=== PATIENT | male | born 1980 | race Hispanic/Latino ===

== ENCOUNTER 2016-10-18 03:45 | Inpatient (IN) | payer OTHER, MEDICAID ==
--- NOTE | 2016-10-18 03:58 | C.PDOC ---
History Of Present Illness The patient presents to the ED for psychiatric evaluation. Patient states he is depressed. Patient states he wants to jump in front of a car and also states he wants to return to [facility]. He denies homicidal ideation. Time Seen by Provider: 10/18/16 03:58 Chief Complaint (Nursing): Psychiatric Evaluation History Per: Patient History/Exam Limitations: no limitations Onset/Duration Of Symptoms: Hrs Current Symptoms Are (Timing): Still Present Suicide/Self Injury Attempted (Context): None Modifying Factor(s): None Severity: Mild Pain Scale Rating Of: 3 Associated Symptoms: Depression, Suicidal Thoughts, Suicidal Plan Involuntary Hold By: None Recent travel outside of the [place]: No Additional History Per: Patient Past Medical History Reviewed: Historical Data, Nursing Documentation, Vital Signs Vital Signs: Last Vital Signs Temp 97.4 F L 10/18/16 06:54 Pulse 91 H 10/18/16 06:54 Resp 16 10/18/16 06:54 BP 112/66 10/18/16 06:54 Pulse Ox 96 10/18/16 06:54 - Medical History PMH: Anxiety, Bipolar Disorder, Bronchitis, Depression, Schizophrenia Surgical History: Appendectomy - [facility] Procedures ALCOHOL DETOXIFICATION (11/11/14) COMBINED ALCOHOL AND DRUG DETOXIFICATION (08/18/14) DETOXIFICATION SERVICES FOR SUBSTANCE ABUSE TREATMENT (12/31/14) DRUG DETOXIFICATION (09/29/14) INDIVID PSYCHOTHERAP NEC (10/21/14) NEBULIZER THERAPY (06/23/02) OTHER GROUP THERAPY (10/21/14) Family History: States: Unknown Family Hx - Social History Hx Tobacco Use: No Hx Alcohol Use: Yes ("WHATEVER AND WHENEVER I CAN GET") Hx Substance Use: Yes ("WHATEVER AND WHENEVER I CAN GET") - Immunization History Hx Tetanus Toxoid Vaccination: No Hx Influenza Vaccination: No Hx Pneumococcal Vaccination: No Review Of Systems Constitutional: Negative for: Fever, Chills Cardiovascular: Negative for: Chest Pain, Palpitations Respiratory: Negative for: Cough, Shortness of Breath Gastrointestinal: Negative for: Nausea, Vomiting, Abdominal Pain Skin: Negative for: Rash, Lesions, Jaundice, Bruising Neurological: Negative for: Weakness, Numbness Psych: Positive for: Depression, Suicidal ideation Physical Exam - Physical Exam Appears: Non-toxic, No Acute Distress Skin: Warm, Dry Head: Normacephalic Eye(s): bilateral: Normal Inspection Oral Mucosa: Moist Neck: Supple Chest: Symmetrical, No Deformity Cardiovascular: Rhythm Regular, No Murmur Respiratory: No Rales, No Rhonchi, No Wheezing Extremity: Normal ROM, Capillary Refill (less than 2 seconds ) Neurological/Psych: Oriented x3 Gait: Steady ED Course And Treatment - Laboratory Results Result Diagrams: 10/18/16 04:16 10/18/16 04:16 O2 Sat by Pulse Oximetry: 97 (on RA) Pulse Ox Interpretation: Normal Progress Note: labs ordered and reviewed. ED OBSERVATION Date of observation admission: 10/18/16 Time of observation admission: 05:20 - Observation admission statement Patient is being placed in observation because:: depression, suicidal ideation - Goals of Observation Goals of observation are:: crisis evaluation - Progress Note Progress Note: 10/18/16 05:22 patient is resting comfortably, vitals remain stable Disposition Counseled Patient/Family Regarding: Studies Performed, Diagnosis - Disposition Disposition Time: 03:58 Condition: FAIR - Clinical Impression Clinical Impression: Major depressive disorder, Alcohol use disorder - Scribe Statement The provider has reviewed the documentation as recorded by the Scribe (Sri Bates) All medical record entries made by the Scribe were at my direction and personally dictated by me. I have reviewed the chart and agree that the record accurately reflects my personal performance of the history, physical exam, medical decision making, and the department course for this patient. I have also personally directed, reviewed, and agree with the discharge instructions and disposition. Physician Patient Turnover Patient Signed Over To: Krysta Alvarez Handoff Comments: Pending bed availability for admission
[2016-10-18 04:32] LABS: CHLORIDE 100 mmol/L (98-107)
[2016-10-18 04:33] LABS: POTASSIUM 3.6 mmol/L (3.6-5.2); SODIUM 144 mmol/L (132-148)
[2016-10-18 04:35] LABS: ALB/GLOB RATIO 1.4 (1.0-2.1); ALKALINE PHOSPHATASE 85 U/L (38-126); ALT/SGPT 92 U/L (21-72); AST/SGOT 86 U/L (17-59); BILIRUBIN,TOTAL 0.6 mg/dL (0.2-1.3); BLOOD UREA NITROGEN 14 mg/dL (9-20); CARBON DIOXIDE 26 mmol/L (22-30); GFR AFRICAN-AMERICAN > 60; TOTAL PROTEIN 7.6 g/dL (6.3-8.3)
[2016-10-18 04:36] LABS: ALCOHOL SERUM 227 mg/dl (0-10); CALCIUM 9.1 mg/dl (8.6-10.4); GLUCOSE,RANDOM 115 mg/dL (75-110)
[2016-10-18 04:38] LABS: BASO % 0.4 % (0.0-2.0); EOS # 0.6 K/uL (0.0-0.7); EOS % 5.7 % (0.0-4.0); HEMATOCRIT 31.5 % (35.0-51.0); LYMPH # 4.6 K/uL (1.0-4.3); LYMPH % 43.6 % (20.0-40.0); MEAN CELL VOLUME 82.4 fL (80.0-94.0); MEAN CORPUSCULAR HEMOGLOBIN 28.2 pg (27.0-31.0); MEAN CORPUSCULAR HGB CONC 34.3 g/dL (33.0-37.0); MEAN PLATELET VOLUME 6.3 fL (7.2-11.7); MONO # 0.6 K/uL (0.0-0.8); MONO % 6.1 % (0.0-10.0); NRBC % 0.1 % (0.0-2.0); RED CELL DISTRIBUTION WIDTH 13.4 % (11.5-14.5); WHITE BLOOD COUNT 10.5 K/uL (4.8-10.8)
[2016-10-18 05:49] LABS: URINE BILIRUBIN NEGATIVE (NEGATIVE); URINE BLOOD NEGATIVE (NEGATIVE); URINE COLOR Yellow (YELLOW); URINE GLUCOSE (UA) NORMAL (Normal); URINE KETONE NEGATIVE (NEGATIVE); URINE LEUKOCYTE ESTERASE NEG Leu/uL (Negative); URINE PROTEIN 1+ mg/dL (NEGATIVE); URINE UROBILINOGEN NORMAL mg/dL (0.2-1.0); WBC URINE 1 /hpf (0-5)
[2016-10-18] MEDS: Divalproex 500 mg DR Tab PO SCH ×2 (12:09→17:12)
--- NOTE | 2016-10-18 14:02 | PCM.BM ---
<Madalyn Peres - Last Filed: 10/18/16 13:57> Treatment Plan Problems - Problems identified on initial assessmt Depression Date Initiated: 10/18/16 Time Initiated: 13:57 Assessment reference: PE, NA Status: Active Substance Abuse Date Initiated: 10/18/16 Time Initiated: 13:59 Assessment reference: NA Status: Active Treatment assets and liabiliti Patient Assests: cooperative, ADL independent, physically healthy, cognitively intact Patient Liabilities: live alone (Homeless), poor support system, substance abuse (PCP, ETOH, Cocaine, THC) - Milieu Protocol Maintain good personal hygiene: daily Encourage regular showers, daily Remind patient to perform daily oral care, other Assist patient to perform ADL's (Self) Conduct patient checks and document Observation sheet: Q15 minutes (Observation) Maintain personal safety: every shift Educate patient to report safety concerns to staff, every shift Monitor environment for contraband/sharps Medication safety: Monitor for expected outcome, potential side effects: every shift, Assess barriers to learning: every shift, Assess readiness for medication education: every shift <Angela Huitron - Last Filed: 10/20/16 11:53> Family Contact - Goals for Treatment Patient goals for treatment: "I want to go to rehab at [facility]." Discharge/Continuing Care - Education Needs Education Needs: Patient Medication, Patient Coping Skills, Patient Placement options, Patient Community resources - Discharge Discharge Criteria: Tolerates medication w/o severe side effects, No longer exhibiting s/s of withdrawal, Reduction of target symptoms Discharge to:: Substance Abuse Rehab - Treatment Team Participation Patient/Family/SO Statement: 10/20/16 11:49 "I want to go to [facility]." Discussed with Family/SO: No Was Patient/Family/SO present at Treatment Team Meeting: Yes <Nain Guadalupe - Last Filed: 10/21/16 13:53> - Diagnosis (1) Schizoaffective disorder, bipolar type Status: Acute Interventions: 10/21/16 13:50 * Assess 7x/week regarding severity of withdrawal * Educate regarding risks, benefits, side effects and alternatives of medications * Use Motivational Interviewing for abstinence * Use CBT for relapse prevention * Medication management for withdrawal symptoms * Encourage medication assisted treatment (2) Alcohol use disorder Status: Acute Interventions: 10/21/16 13:53 * Assess 7x/week regarding severity of withdrawal * Educate regarding risks, benefits, side effects and alternatives of medications * Use Motivational Interviewing for abstinence * Use CBT for relapse prevention * Medication management for withdrawal symptoms * Encourage medication assisted treatment (3) Opioid use disorder, severe, in controlled environment, dependence Status: Acute Interventions: 10/21/16 13:53 * Assess 7x/week regarding severity of withdrawal * Educate regarding risks, benefits, side effects and alternatives of medications * Use Motivational Interviewing for abstinence * Use CBT for relapse prevention * Medication management for withdrawal symptoms * Encourage medication assisted treatment
--- NOTE | 2016-10-18 14:13 | PCM.PSYCH ---
Initial Psychiatric Evaluation - Initial Psychiatric Evaluation Type of Admission: Voluntary Legal Status: Capacity Chief Complaint (in patient's own words): I'm feeling suicidal." History of Present Illness and Precipitating Events: The pt is seen, chart reviewed, case discussed with staff. A 35 yo male presented to the ED yesterday night with suicidal ideation's and depression. He is currently severely depressed and exhibiting psychosis with suicidal ideation's. He states that his mind is constantly racing and that he hears voices, sometimes telling him to commit suicide. Patient remained depressed and appeared to be withdrawal symptoms from drinking. He reports of having shakes, sweating, chills, and exhibits tremors on examination. Tardive dyskinesia is also appreciated on examination. Patient states that he planned this suicide attempt by jumping in front of a car but was unable to carry out the plan. The patient states that he was intoxicated with various drugs when he planned this attempt. He admits to doing 5 bags/day of heroin, 1 g/day of cocaine, 1 nickel bag (5.6 g)/day of marijuana , and drinking 1/2 gallon of vodka/day. The patient states that he is currently receiving suboxone 2 times a day at 8 mg. The patient states that he's had 6-7 previous suicide attempts, with the latest attempt being 2 months ago. He admits to using drugs since 14 years old to self medicate his depression and suicidal ideation's. The patient states that he's felt hopeless, worthless, and suicidal since 8 years old. The patient states that he's seen a psychiatrist, on and off, since childhood and has received both behavioral therapy and medications for his conditions, but that none were successful. The patient states being first diagnosed with Schizoaffective disorder at 15 years old, with the most recent diagnosis on October 08, 2016. The patient states that he' s never been to inpatient detox, but that he has been to rehab at [facility] in 2006. He states that he discharged himself because he didn't believe the program was working for him. The patient denies seizures. 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; homeless; smokes 1 pack/day of tabacco Psychiatric Hx: ADHD (diagnosed in childhood); Conduct disorder as a child/ adolescent; Bipolar Disorder; Depression; Schizoaffective Family Hx: none Past Medical Hx: Bronchitis Family Psychiatric Hx: none Current Medications: Active Medications Generic Name Dose Route Start Last Admin Trade Name Freq PRN Reason Stop Dose Admin Divalproex Sodium 500 mg 10/18/16 11:30 10/18/16 12:[address] PO 500 mg BID MYNOR Administration Haloperidol 5 mg 10/18/16 11:18 Haldol PO Q1H PRN agitation, max 4x/24h Hydroxyzine HCl 50 mg 10/18/16 11:18 10/18/16 12:09 Atarax PO 50 mg Q6H PRN Administration Anxiety Trazodone HCl 100 mg 10/18/16 11:18 Desyrel PO HS PRN Insomnia Past Psychiatric History - Past Psychiatric History Previous Treatment History: Inpatient Pertinent Medical Hx (Current Medical&Sleep Prob, Allergies): Allergies Allergy/AdvReac Type Severity Reaction Status Date / Time No Known Allergies Allergy Verified 05/12/16 11:11 SEROquel 10/18/16 Suboxone 12 mg-3 mg Sl Film 10/18/16 Thorazine 10/18/16 traZODone 10/18/16 Review of Systems - Review of Systems All systems: reviewed and no additional remarkable complaints except - Psychiatric Psychiatric: Anxiety, Auditory Hallucinations, Irritability, Paranoia, Suicidal Ideation, Visual Hallucinations Mental Status Examination - Personal Presentation Personal Presentation: Looks stated age - Affect Affect: Constricted, Depressed - Motor Activity Motor Activity: Psychomotor Agitation - Reliability in Providing Information Reliability in Providing Information: Poor, due to alteration in thoughts, Poor , due to altered mood - Speech Speech: Disorganized - Mood Mood: Depressed, Anxious - Formal Thought Process Formal Thought Process: Hallucinations, Delusions, Paranoia, Loosening of associations - Hallucinations/Delusions Hallucinations: Visual, Auditory Delusions: Persecution - Obsessions/Compulsions Obsessions: No Compulsions: No - Cognitive Functions Orientation: Person, Place, Situation, Time Sensorium: Alert Attention/Concentration: Attentive Abstract Thinking: [place] Estimate of Intelligence: Below average Judgement: Imparied, as evidence by: Poor judgement, Imparied, as evidence by: Lack of insight into illness - Risk Risk: Suicidal, Withdrawal, Diminished functioning - Limitations Limitations: Living alone DSM 5 DX - DSM 5 DSM 5 Diagnosis: Schizoaffective disorder bipolar type Alcohol use disorder severe Alcohol withdrawal Cocaine use disorder severe Cannabis use disorder moderate Opiate use disorder on agonist therapy - Recommended/Plan of Treatment Treatment Recommendations and Plan of Treatment: Schizoaffective disorder bipolar type CBT Psychoeducation Supportive therapy, group therapy, individual therapy Depakote 500 mg by mouth twice a day Trazodone 50 mg by mouth daily at bedtime Alcohol use disorder severe CBT Psychoeducation Supportive therapy, individual therapy Use ND for abstinence Alcohol withdrawal uncomplicated CBT Psychoeducation Supportive therapy, individual therapy Librium when necessary Start Librium taper Start folic acid/thiamine/multivitamin Cocaine use disorder severe CBT Psychoeducation Supportive therapy, individual therapy Use ND for abstinence Cannabis use disorder moderate CBT Psychoeducation Supportive therapy, individual therapy Use ND for abstinence Opiate use disorder on agonist therapy CBT Psychoeducation Supportive therapy, individual therapy Use ND for abstinence - Smoking Cessation Smoking Cessation Initiated: No
[2016-10-18] MEDS: Multiple Vitamins Tab PO SCH (14:55)
[2016-10-19] MEDS: Divalproex 500 mg DR Tab PO SCH ×2 (10:42→17:19)
[2016-10-19] MEDS: Multiple Vitamins Tab PO SCH (10:42)
--- NOTE | 2016-10-19 12:52 | PCM.PYCHPN ---
Psychiatric Progress Note - Psychiatric Progress Note Patient seen today, length of contact: 15 min Patient Chief Complaint: I'm still feeling suicidal." Problems Identified/Issues Discussed: The pt is seen, chart reviewed, case discussed with staff. The pt reports withdrawal symptoms; he has chills, tremors, nausea and vomiting. The pt reports feeling depressed, anxious, and very irritable. He states that he "snapped" at another person yesterday for sitting next to him. The pt reports suicidal ideation's. He denies homicidal ideation's. The patient reports no hallucination's, but does admit to hearing voices that command him to commit suicide. Support given, CBT and PR used briefly Patient needs more time for stabilization No SEs from medications, risks discussed. After care discussed Medication Change: Yes (start steven) Medical Record Reviewed: Yes Mental Status Examination - Cognitive Function Orientation: Person, Place, Situation, Time Memory: Intact Attention: Poor Concentration: Poor Association: Loose Fund of Knowledge: Poor - Mood Mood: Depressed, Anxious - Affect Affect: Constricted, Depressed - Speech Speech: Soft - Formal Thought Process Formal Thought Process: Hallucinations, Delusions, Paranoia, Loosening of associations - Suicidal Ideation Suicidal Ideation: No - Homicidal Ideation Homicidal Ideation: No Goal/Treatment Plan - Goal/Treatment Plan Need for Continued Stay: Discharge may exacerbated symptoms, Severe functional impairment Progress Toward Problem(s) and Goals/Treatment Plan: Schizoaffective disorder bipolar type CBT Psychoeducation Supportive therapy, group therapy, individual therapy Depakote 500 mg by mouth twice a day Trazodone 50 mg by mouth daily at bedtime Alcohol use disorder severe CBT Psychoeducation Supportive therapy, individual therapy Use PR for abstinence Alcohol withdrawal uncomplicated CBT Psychoeducation Supportive therapy, individual therapy Librium when necessary Start Librium taper Start folic acid/thiamine/multivitamin Cocaine use disorder severe CBT Psychoeducation Supportive therapy, individual therapy Use PR for abstinence Cannabis use disorder moderate CBT Psychoeducation Supportive therapy, individual therapy Use PR for abstinence Opiate use disorder on agonist therapy CBT Psychoeducation Supportive therapy, individual therapy Use PR for abstinence - Smoking Cessation Smoking Cessation Initiated: No
[2016-10-20] MEDS: Multiple Vitamins Tab PO SCH (10:31)
[2016-10-20] MEDS: Divalproex 500 mg DR Tab PO SCH ×2 (10:33→18:20)
--- NOTE | 2016-10-20 14:06 | PCM.PYCHPN ---
Psychiatric Progress Note - Psychiatric Progress Note Patient seen today, length of contact: 15 min Patient Chief Complaint: "I'm feeling the same." Problems Identified/Issues Discussed: The pt is seen, chart reviewed, case discussed with staff. The pt reports milder withdrawal symptoms; he has tremors. The pt reports still feeling depressed, anxious, and irritable. He reports having random homicidal thoughts. He states that he "snapped" again at another person yesterday for sitting next to him. This is his second reported incident. The pt reports no active suicidal ideation's; but he does admit to continued auditory hallucinations commanding him to commit suicide. Support given, CBT and RI used briefly Patient needs more time for stabilization No SEs from medications, risks discussed. The pt reports that librium is not helping him. After care discussed Medication Change: Yes (start thorazine, start Prolixin) Medical Record Reviewed: Yes Mental Status Examination - Cognitive Function Orientation: Person, Place, Situation, Time Memory: Intact Attention: WNL Concentration: Poor Association: Loose Fund of Knowledge: Poor - Mood Mood: Depressed, Anxious - Affect Affect: Constricted, Depressed - Speech Speech: Soft - Formal Thought Process Formal Thought Process: Hallucinations, Delusions, Paranoia, Loosening of associations, Flight of ideas - Homicidal Ideation Homicidal Ideation: No Goal/Treatment Plan - Goal/Treatment Plan Need for Continued Stay: Discharge may exacerbated symptoms, Severe functional impairment Progress Toward Problem(s) and Goals/Treatment Plan: Schizoaffective disorder bipolar type CBT Psychoeducation Supportive therapy, group therapy, individual therapy Depakote 500 mg by mouth twice a day Trazodone 50 mg by mouth daily at bedtime Prolixin 5 milligram by mouth twice a day Alcohol use disorder severe CBT Psychoeducation Supportive therapy, individual therapy Use RI for abstinence Alcohol withdrawal uncomplicated CBT Psychoeducation Supportive therapy, individual therapy Librium when necessary Librium taper Folic acid/thiamine/multivitamin Cocaine use disorder severe CBT Psychoeducation Supportive therapy, individual therapy Use RI for abstinence Cannabis use disorder moderate CBT Psychoeducation Supportive therapy, individual therapy Use RI for abstinence Opiate use disorder on agonist therapy CBT Psychoeducation Supportive therapy, individual therapy Use RI for abstinence - Smoking Cessation Smoking Cessation Initiated: No
[2016-10-21] MEDS ORDERED: Pneumococcal 23-Valent Vaccine IM ONE (10:00)
[2016-10-21] MEDS: Multiple Vitamins Tab PO SCH (10:22)
[2016-10-21] MEDS: Divalproex 500 mg DR Tab PO SCH ×2 (10:22→17:28)
--- NOTE | 2016-10-21 13:47 | PCM.PYCHPN ---
Psychiatric Progress Note - Psychiatric Progress Note Patient seen today, length of contact: 14 min Patient Chief Complaint: "I feel a little better." Problems Identified/Issues Discussed: The pt is seen, chart reviewed, case discussed with staff. The pt appears less agitated than yesterday. The pt reports mild withdrawal symptoms from suboxone; he states that he has stomach aches, tremors, and visual and auditory hallucinations. He states his visual hallucinations are of planes crashing into his window, and his auditory hallucinations are command type telling him to commit suicide because he is worthless. The pt states he is still paranoid and appears slightly anxious. The pt admits to passive ideation's of suicide, denies active thoughts. Support given, CBT and WI used briefly. The pt is improving slowly and needs more time. No SEs from medications, risks discussed. After care discussed. Medication Change: Yes (increase fluphenazine) Medical Record Reviewed: Yes Mental Status Examination - Cognitive Function Orientation: Person, Place, Situation, Time Memory: Intact Attention: WNL Concentration: Poor Association: Loose Fund of Knowledge: Poor - Mood Mood: Depressed, Anxious - Affect Affect: Constricted, Depressed - Speech Speech: Soft - Formal Thought Process Formal Thought Process: Hallucinations, Delusions, Paranoia, Loosening of associations - Suicidal Ideation Suicidal Ideation: No - Homicidal Ideation Homicidal Ideation: No Goal/Treatment Plan - Goal/Treatment Plan Need for Continued Stay: Discharge may exacerbated symptoms, Severe functional impairment Progress Toward Problem(s) and Goals/Treatment Plan: Schizoaffective disorder bipolar type CBT Psychoeducation Supportive therapy, group therapy, individual therapy Depakote 500 mg by mouth twice a day Trazodone 50 mg by mouth daily at bedtime Prolixin 10 mg pO BID Thorazine 100 mg PO Q8 prn Seroquel 100 mg PO QHS Alcohol use disorder severe CBT Psychoeducation Supportive therapy, individual therapy Use WI for abstinence Alcohol withdrawal uncomplicated CBT Psychoeducation Supportive therapy, individual therapy Librium when necessary Librium taper Folic acid/thiamine/multivitamin Cocaine use disorder severe CBT Psychoeducation Supportive therapy, individual therapy Use WI for abstinence Cannabis use disorder moderate CBT Psychoeducation Supportive therapy, individual therapy Use WI for abstinence Opiate use disorder on agonist therapy CBT Psychoeducation Supportive therapy, individual therapy Use WI for abstinence Methadone 10 mg PO Daily - Smoking Cessation Smoking Cessation Initiated: No
[2016-10-22] MEDS: Multiple Vitamins Tab PO SCH (10:58)
[2016-10-22] MEDS: Divalproex 500 mg DR Tab PO SCH ×2 (10:58→17:55)
--- NOTE | 2016-10-22 13:02 | PCM.PYCHPN ---
Psychiatric Progress Note - Psychiatric Progress Note Patient seen today, length of contact: 16 min Patient Chief Complaint: "It's going so so." Problems Identified/Issues Discussed: The pt is seen, chart reviewed, case discussed with staff. The pt reports less withdrawal symptoms. The patient denies suicidal or homicidal ideation's. The pt reports that he gets suicidal or homicidal ideation's when he is outside the hospital. The pt still reports hearing command type auditory hallucinations at night, telling him to commit suicide. The pt is improving slowly and needs more time. Support given, CBT and ME used briefly. No SEs from medications, risks discussed. After care discussed. Medication Change: Yes (increase Prolixin) Medical Record Reviewed: Yes Mental Status Examination - Cognitive Function Orientation: Person, Place, Situation, Time Memory: Intact Attention: WNL Concentration: Poor Association: Loose Fund of Knowledge: Poor - Mood Mood: Depressed, Anxious - Affect Affect: Constricted, Depressed - Speech Speech: Soft - Formal Thought Process Formal Thought Process: Hallucinations, Delusions, Paranoia, Loosening of associations, Flight of ideas - Suicidal Ideation Suicidal Ideation: No - Homicidal Ideation Homicidal Ideation: No Goal/Treatment Plan - Goal/Treatment Plan Need for Continued Stay: Discharge may exacerbated symptoms, Severe functional impairment Progress Toward Problem(s) and Goals/Treatment Plan: Schizoaffective disorder bipolar type CBT Psychoeducation Supportive therapy, group therapy, individual therapy Depakote 500 mg by mouth twice a day Trazodone 50 mg by mouth daily at bedtime Prolixin 10 milligram by mouth twice a day Alcohol use disorder severe CBT Psychoeducation Supportive therapy, individual therapy Use ME for abstinence Alcohol withdrawal uncomplicated CBT Psychoeducation Supportive therapy, individual therapy Librium when necessary Librium taper Folic acid/thiamine/multivitamin Cocaine use disorder severe CBT Psychoeducation Supportive therapy, individual therapy Use ME for abstinence Cannabis use disorder moderate CBT Psychoeducation Supportive therapy, individual therapy Use ME for abstinence Opiate use disorder on agonist therapy CBT Psychoeducation Supportive therapy, individual therapy Use ME for abstinence - Smoking Cessation Smoking Cessation Initiated: No
[2016-10-23] MEDS: Multiple Vitamins Tab PO SCH (10:19)
[2016-10-23] MEDS: Divalproex 500 mg DR Tab PO SCH ×2 (10:19→18:21)
[2016-10-23 10:48] VITALS: O2SAT 99
--- NOTE | 2016-10-23 18:56 | PCM.PYCHPN ---
Psychiatric Progress Note - Psychiatric Progress Note Patient seen today, length of contact: 15 minutes Patient Chief Complaint: Can I get Suboxone Problems Identified/Issues Discussed: Patient seen. Chart reviewed. Case discussed with the staff. Issues related to illness and treatment were discussed with the patient. Reported compliant with treatment with no adverse affects. Tolerating treatment very well. Patient appeared to be drowsy and difficult to keep his balance. Currently patient denied any auditory visual hallucinations or any suicidal homicidal ideations. Patient was preoccupied with Suboxone. Asking for Suboxone frequently. Education provided. Will reduce the dose of methadone to 5 mg and try to stop it tomorrow. We will also hold Seroquel 100 mg at bedtime. We will observe the patient after above changes. Medical Problems: None reported Diagnostic Results: Reviewed DSM 5 Symptoms Update: Some improvement with treatment Medication Change: Yes (Dose of methadone reduced to 5 mg, also hold Seroquel) Medical Record Reviewed: Yes Mental Status Examination - Cognitive Function Orientation: Person, Place, Situation, Time Memory: Intact Attention: WNL Concentration: WNL Association: WNL Fund of Knowledge: WN Decription of patient's judgement and insights: Fair - Mood Mood: Anxious - Affect Affect: Other (Appropriate) - Speech Speech: Soft - Formal Thought Process Formal Thought Process: No Impairment - Suicidal Ideation Suicidal Ideation: No - Homicidal Ideation Homicidal Ideation: No Goal/Treatment Plan - Goal/Treatment Plan Need for Continued Stay: Remain at risks for inpatient hospitalization, Discharge may exacerbated symptoms, Severe functional impairment Progress Toward Problem(s) and Goals/Treatment Plan: Patient education Supportive therapy Will reduce dose of methadone to 5 mg We'll hold Seroquel Continue rest of the treatment as before Estimated Date of D/C: 10/27/16 - Smoking Cessation Smoking Cessation Initiated: No
[2016-10-24] MEDS: Multiple Vitamins Tab PO SCH (10:05)
[2016-10-24] MEDS: Divalproex 500 mg DR Tab PO SCH ×2 (10:05→17:59)
--- NOTE | 2016-10-24 17:01 | PCM.PYCHPN ---
Psychiatric Progress Note - Psychiatric Progress Note Patient seen today, length of contact: 15 minutes Patient Chief Complaint: I feel tired Problems Identified/Issues Discussed: Patient seen. Chart reviewed. Case discussed with the staff. Issues related to illness and treatment were discussed with the patient. Reported compliant with treatment with no adverse affects. Tolerating treatment very well. Patient appeared more alert, more balanced. Patient was able to walk normally. This happened after adjusting his medications including methadone which was discontinued today and also put on hold for Seroquel as patient was getting to integrity psychotic medications. Currently patient denied any auditory visual hallucinations or any suicidal homicidal ideations. Medical Problems: None reported Diagnostic Results: Reviewed DSM 5 Symptoms Update: Improving with treatment Medication Change: No Medical Record Reviewed: Yes Mental Status Examination - Cognitive Function Orientation: Person, Place, Situation, Time Memory: Intact Attention: WNL Concentration: WNL Association: WNL Fund of Knowledge: [facility] Decription of patient's judgement and insights: Fair - Mood Mood: Anxious - Affect Affect: Other (Appropriate) - Speech Speech: Soft - Formal Thought Process Formal Thought Process: No Impairment - Suicidal Ideation Suicidal Ideation: No - Homicidal Ideation Homicidal Ideation: No Goal/Treatment Plan - Goal/Treatment Plan Need for Continued Stay: Remain at risks for inpatient hospitalization, Discharge may exacerbated symptoms, Severe functional impairment Progress Toward Problem(s) and Goals/Treatment Plan: Patient education Supportive therapy Continue treatment as before Estimated Date of D/C: 10/27/16 - Smoking Cessation Smoking Cessation Initiated: No
[2016-10-25] MEDS: Divalproex 500 mg DR Tab PO SCH ×2 (10:33→17:14)
[2016-10-25] MEDS: Multiple Vitamins Tab PO SCH (10:33)
--- NOTE | 2016-10-25 15:10 | PCM.PYCHPN ---
Psychiatric Progress Note - Psychiatric Progress Note Patient seen today, length of contact: 15 minutes Patient Chief Complaint: "It's going so so." Problems Identified/Issues Discussed: The pt is seen, chart reviewed, case discussed with staff. The pt reports less withdrawal symptoms. The patient denies suicidal or homicidal ideation's. The pt reports that he gets suicidal or homicidal ideation's when he is outside the hospital. The pt still reports hearing command type auditory hallucinations at night, telling him to commit suicide. The pt is improving slowly and needs more time. Support given, CBT and CO used briefly. No SEs from medications, risks discussed. After care discussed. Medication Change: No Medical Record Reviewed: Yes Mental Status Examination - Cognitive Function Orientation: Person, Place, Situation, Time Memory: Intact Attention: WNL Concentration: Poor Association: WNL Fund of Knowledge: WNL - Mood Mood: Anxious - Affect Affect: Other (Appropriate) - Speech Speech: Soft - Formal Thought Process Formal Thought Process: Hallucinations - Suicidal Ideation Suicidal Ideation: No - Homicidal Ideation Homicidal Ideation: No Goal/Treatment Plan - Goal/Treatment Plan Need for Continued Stay: Remain at risks for inpatient hospitalization, Discharge may exacerbated symptoms, Severe functional impairment Progress Toward Problem(s) and Goals/Treatment Plan: Schizoaffective disorder bipolar type CBT Psychoeducation Supportive therapy, group therapy, individual therapy Depakote 500 mg by mouth twice a day Trazodone 50 mg by mouth daily at bedtime Prolixin 10 milligram by mouth twice a day Seroquel 100 mg PO QHS Alcohol use disorder severe CBT Psychoeducation Supportive therapy, individual therapy Use CO for abstinence Alcohol withdrawal uncomplicated CBT Psychoeducation Supportive therapy, individual therapy Librium when necessary Librium taper Folic acid/thiamine/multivitamin Cocaine use disorder severe CBT Psychoeducation Supportive therapy, individual therapy Use CO for abstinence Cannabis use disorder moderate CBT Psychoeducation Supportive therapy, individual therapy Use CO for abstinence Opiate use disorder on agonist therapy CBT Psychoeducation Supportive therapy, individual therapy Use CO for abstinence Estimated Date of D/C: 10/27/16
--- NOTE | 2016-10-26 10:05 | PCM.PYCHPN ---
Psychiatric Progress Note - Psychiatric Progress Note Patient seen today, length of contact: 15 minutes Patient Chief Complaint: "It's going so so." Problems Identified/Issues Discussed: The pt is seen, chart reviewed, case discussed with staff. The pt reports less withdrawal symptoms. The patient denies suicidal or homicidal ideation's. The pt reports that he gets suicidal or homicidal ideation's when he is outside the hospital. The pt still reports hearing command type auditory hallucinations at night, telling him to commit suicide. The pt is improving slowly and needs more time. Support given, CBT and VT used briefly. No SEs from medications, risks discussed. After care discussed. Medication Change: No Medical Record Reviewed: Yes Mental Status Examination - Cognitive Function Orientation: Person, Place, Situation, Time Memory: Intact Attention: WNL Concentration: Poor Association: WNL Fund of Knowledge: WNL - Mood Mood: Anxious - Affect Affect: Other (Appropriate) - Speech Speech: Soft - Formal Thought Process Formal Thought Process: Hallucinations - Suicidal Ideation Suicidal Ideation: No - Homicidal Ideation Homicidal Ideation: No Goal/Treatment Plan - Goal/Treatment Plan Need for Continued Stay: Remain at risks for inpatient hospitalization, Discharge may exacerbated symptoms, Severe functional impairment Progress Toward Problem(s) and Goals/Treatment Plan: Schizoaffective disorder bipolar type CBT Psychoeducation Supportive therapy, group therapy, individual therapy Depakote 500 mg by mouth twice a day Trazodone 50 mg by mouth daily at bedtime Prolixin 10 milligram by mouth twice a day Seroquel 100 mg PO QHS Alcohol use disorder severe CBT Psychoeducation Supportive therapy, individual therapy Use [place] for abstinence Alcohol withdrawal uncomplicated CBT Psychoeducation Supportive therapy, individual therapy Librium when necessary Librium taper Folic acid/thiamine/multivitamin Cocaine use disorder severe CBT Psychoeducation Supportive therapy, individual therapy Use VT for abstinence Cannabis use disorder moderate CBT Psychoeducation Supportive therapy, individual therapy Use [place] for abstinence Opiate use disorder on agonist therapy CBT Psychoeducation Supportive therapy, individual therapy Use VT for abstinence Estimated Date of D/C: 10/27/16
[2016-10-26] MEDS: Divalproex 500 mg DR Tab PO SCH ×2 (12:04→17:53)
[2016-10-26] MEDS: Multiple Vitamins Tab PO SCH (12:04)
--- NOTE | 2016-10-27 09:51 | PCM.BM ---
<KayodeAngela Ruth - Last Filed: 10/27/16 09:50> Treatment Plan Problems - Problems identified on initial assessmt Depression Date Initiated: 10/18/16 Time Initiated: 13:57 Assessment reference: PE, NA Status: Active Substance Abuse Date Initiated: 10/18/16 Time Initiated: 13:59 Assessment reference: NA Status: Active Treatment assets and liabiliti Patient Assests: cooperative, ADL independent, physically healthy, cognitively intact Patient Liabilities: live alone (Homeless), poor support system, substance abuse (PCP, ETOH, Cocaine, THC) - Milieu Protocol Maintain good personal hygiene: daily Encourage regular showers, daily Remind patient to perform daily oral care, other Assist patient to perform ADL's (Self) Conduct patient checks and document Observation sheet: Q15 minutes (Observation) Maintain personal safety: every shift Educate patient to report safety concerns to staff, every shift Monitor environment for contraband/sharps Medication safety: Monitor for expected outcome, potential side effects: every shift, Assess barriers to learning: every shift, Assess readiness for medication education: every shift Milieu Narrative: Schizoaffective disorder bipolar type CBT Psychoeducation Supportive therapy, group therapy, individual therapy Depakote 500 mg by mouth twice a day Trazodone 50 mg by mouth daily at bedtime Prolixin 10 milligram by mouth twice a day Seroquel 100 mg PO QHS Alcohol use disorder severe CBT Psychoeducation Supportive therapy, individual therapy Use [place] for abstinence Alcohol withdrawal uncomplicated CBT Psychoeducation Supportive therapy, individual therapy Librium when necessary Librium taper Folic acid/thiamine/multivitamin Cocaine use disorder severe CBT Psychoeducation Supportive therapy, individual therapy Use CT for abstinence Cannabis use disorder moderate CBT Psychoeducation Supportive therapy, individual therapy Use [place] for abstinence Opiate use disorder on agonist therapy CBT Psychoeducation Supportive therapy, individual therapy Use [place] for abstinence Family Contact - Goals for Treatment Patient goals for treatment: "I want to go to rehab at [facility]." Discharge/Continuing Care - Education Needs Education Needs: Patient Medication, Patient Coping Skills, Patient Placement options, Patient Community resources - Discharge Discharge Criteria: Tolerates medication w/o severe side effects, No longer exhibiting s/s of withdrawal, Reduction of target symptoms Discharge to:: Substance Abuse Rehab - Treatment Team Participation Patient/Family/SO Statement: Schizoaffective disorder bipolar type CBT Psychoeducation Supportive therapy, group therapy, individual therapy Depakote 500 mg by mouth twice a day Trazodone 50 mg by mouth daily at bedtime Prolixin 10 milligram by mouth twice a day Seroquel 100 mg PO QHS Alcohol use disorder severe CBT Psychoeducation Supportive therapy, individual therapy Use [place] for abstinence Alcohol withdrawal uncomplicated CBT Psychoeducation Supportive therapy, individual therapy Librium when necessary Librium taper Folic acid/thiamine/multivitamin Cocaine use disorder severe CBT Psychoeducation Supportive therapy, individual therapy Use CT for abstinence Cannabis use disorder moderate CBT Psychoeducation Supportive therapy, individual therapy Use CT for abstinence Opiate use disorder on agonist therapy CBT Psychoeducation Supportive therapy, individual therapy Use CT for abstinence Discussed with Family/SO: No Was Patient/Family/SO present at Treatment Team Meeting: Yes Treatment Plan Review - Problem Depression Date Initiated: 10/27/16 Time Initiated: 09:51 Progress toward outcomes: improved Substance Abuse Date Initiated: 10/27/16 Time Initiated: 09:51 Progress toward outcomes: improved <Nain Guadalupe - Last Filed: 10/27/16 11:10> - Diagnosis (1) Schizoaffective disorder, bipolar type Status: Acute Interventions: 10/27/16 11:10 * Assess/adjust medications daily and /or as needed * See patient on an individual basis 7x/week to assess status of hallucinations * Discuss risks, benefits, side effects and alternatives of medications * (2) Alcohol use disorder Status: Acute Interventions: 10/27/16 11:10 * Assess 7x/week regarding severity of withdrawal * Educate regarding risks, benefits, side effects and alternatives of medications * Use Motivational Interviewing for abstinence * Use CBT for relapse prevention * Medication management for withdrawal symptoms * Encourage medication assisted treatment * (3) Opioid use disorder, severe, in controlled environment, dependence Status: Acute Interventions: 10/27/16 11:10 * Assess 7x/week regarding severity of withdrawal * Educate regarding risks, benefits, side effects and alternatives of medications * Use Motivational Interviewing for abstinence * Use CBT for relapse prevention * Medication management for withdrawal symptoms * Encourage medication assisted treatment *
[2016-10-27] MEDS: Divalproex 500 mg DR Tab PO SCH ×2 (10:11→18:20)
[2016-10-27] MEDS: Multiple Vitamins Tab PO SCH (10:11)
--- NOTE | 2016-10-27 11:10 | PCM.PYCHPN ---
Psychiatric Progress Note - Psychiatric Progress Note Patient seen today, length of contact: 15 minutes Patient Chief Complaint: "It's going so so." Problems Identified/Issues Discussed: The pt is seen, chart reviewed, case discussed with staff. The pt reports improvement in his mis mood and improvement in the withdrawal symptoms. The patient denies suicidal or homicidal ideation's. He also reports improvement in the voices and appear more organized. The pt is improving slowly and needs more time. Support given, CBT and [place] used briefly. No SEs from medications, risks discussed. After care discussed. Medication Change: No Medical Record Reviewed: Yes Mental Status Examination - Cognitive Function Orientation: Person, Place, Situation, Time Memory: Intact Attention: WNL Concentration: Poor Association: WNL Fund of Knowledge: WNL - Mood Mood: Anxious - Affect Affect: Other (Appropriate) - Speech Speech: Soft - Formal Thought Process Formal Thought Process: Hallucinations - Suicidal Ideation Suicidal Ideation: No - Homicidal Ideation Homicidal Ideation: No Goal/Treatment Plan - Goal/Treatment Plan Need for Continued Stay: Remain at risks for inpatient hospitalization, Discharge may exacerbated symptoms, Severe functional impairment Progress Toward Problem(s) and Goals/Treatment Plan: Schizoaffective disorder bipolar type CBT Psychoeducation Supportive therapy, group therapy, individual therapy Depakote 500 mg by mouth twice a day Trazodone 50 mg by mouth daily at bedtime Prolixin 10 milligram by mouth twice a day Seroquel 100 mg PO QHS Alcohol use disorder severe CBT Psychoeducation Supportive therapy, individual therapy Use [place] for abstinence Alcohol withdrawal uncomplicated CBT Psychoeducation Supportive therapy, individual therapy Librium when necessary Librium taper Folic acid/thiamine/multivitamin Cocaine use disorder severe CBT Psychoeducation Supportive therapy, individual therapy Use [place] for abstinence Cannabis use disorder moderate CBT Psychoeducation Supportive therapy, individual therapy Use FL for abstinence Opiate use disorder on agonist therapy CBT Psychoeducation Supportive therapy, individual therapy Use [place] for abstinence Estimated Date of D/C: 10/27/16 - Smoking Cessation Smoking Cessation Initiated: No
[2016-10-28] MEDS: Multiple Vitamins Tab PO SCH (10:38)
[2016-10-28] MEDS: Divalproex 500 mg DR Tab PO SCH (10:38)
[2016-10-28 11:17] VITALS: BP 110/68; PULSE 78; RESP 18; TEMP 98.2
--- NOTE | 2016-11-05 01:45 | PCM.PYCHDC ---
Mental Status Examination - Mental Status Examination Orientation: Person, Place, Situation, Time Memory: Intact Mood: Neutral Affect: Constricted Speech: Soft Attention: WNL Concentration: WNL Association: WNL Fund of Knowledge: WNL Formal Thought Process: No Impairment Description of patient's judgement and insight: good, fair Psychotic Thoughts and Behaviors: denies any AVH Suicidal Ideation: No Current Homicidal Ideation?: No Discharge Summary - Discharge Note Reason for Hospitalization: The pt is seen, chart reviewed, case discussed with staff. A 35 yo male presented to the ED yesterday night with suicidal ideation's and depression. He is currently severely depressed and exhibiting psychosis with suicidal ideation's. He states that his mind is constantly racing and that he hears voices, sometimes telling him to commit suicide. Patient remained depressed and appeared to be withdrawal symptoms from drinking. He reports of having shakes, sweating, chills, and exhibits tremors on examination. Tardive dyskinesia is also appreciated on examination. Patient states that he planned this suicide attempt by jumping in front of a car but was unable to carry out the plan. The patient states that he was intoxicated with various drugs when he planned this attempt. He admits to doing 5 bags/day of heroin, 1 g/day of cocaine, 1 nickel bag (5.6 g)/day of marijuana , and drinking 1/2 gallon of vodka/day. The patient states that he is currently receiving suboxone 2 times a day at 8 mg. The patient states that he's had 6-7 previous suicide attempts, with the latest attempt being 2 months ago. He admits to using drugs since 14 years old to self medicate his depression and suicidal ideation's. The patient states that he's felt hopeless, worthless, and suicidal since 8 years old. The patient states that he's seen a psychiatrist, on and off, since childhood and has received both behavioral therapy and medications for his conditions, but that none were successful. The patient states being first diagnosed with Schizoaffective disorder at 15 years old, with the most recent diagnosis on October 08, 2016. The patient states that he' s never been to inpatient detox, but that he has been to rehab at [facility] in 2006. He states that he discharged himself because he didn't believe the program was working for him. The patient denies seizures. Consultations:: List each consultation separately and include: 1. Reason for request. 2. Findings. 3. Follow-up Summary of Hospital Course include:: 1. Description of specific treatment plan utilized for patients during their course of treatmen. 2. Summarize the time- course for resolution of acute symptoms and/or regressed behaviors. 3. Describe issues identified and worked on during hospitalization. 4. Describe medication utilized. 5. Describe medical problems identified and treated. 6. Reassessment of suicide risk Summary of Hospital Course: During the course of his stay, patient (pt) started progressively improving and he no longer remained irritable, depressed, paranoid, suicidal and agitated. His mood and withdrawal symptoms were improved and he started attending groups and meetings and started socializing. Patient denied any feelings of hopelessness, helplessness, and worthlessness, denied any problem with the sleep or appetite, denied suicidal ideation or homicidal ideation. Pt denied any auditory or visual hallucinations. Some changes were made in his current medications and patient was discharged on following medications. He tolerated these medications very well and denied any side effects. - Diagnosis (1) Schizoaffective disorder, bipolar type Status: Acute (2) Alcohol use disorder Status: Acute (3) Opioid use disorder, severe, in controlled environment, dependence Status: Acute - Final Diagnosis (DSM 5) Condition upon Discharge: STABLE DSM 5: Schizoaffective disorder bipolar type Alcohol use disorder severe Alcohol withdrawal uncomplicated Cocaine use disorder severe Cannabis use disorder moderate Opiate use disorder on agonist therapy Disposition: HOME/ ROUTINE Follow-up Treatment Plan: Education: Pt was educated and counseled about the risks and benefits of taking and not taking medications. Pt was educated and counseled about the risks of drinking and abusing drugs. Pt was educated and counseled to go to the ER or call 911 if pt develop suicidal ideation or homicidal ideation, worsening of symptoms or severe side effects of the meds. Prescriptions/Medication Reconciliation: Benztropine [Cogentin] 1 mg PO BID #60 tab Divalproex [Depakote DR] 500 mg PO BID #60 tcp fluPHENAZine [Prolixin] 10 mg PO BID #60 tab QUEtiapine [Seroquel] 100 mg PO HS #30 tab - Smoking Cessation Smoking Cessation Medication prescribed: No - Antipsychotic Medications Pt discharged on 2 or more routine antipsychotic medications: No
== END 2016-10-28 12:43 | disposition home or self-care (01) | DRG 885 ==
LOC: C.ER 03:45 → C.9OBSV 05:04 → OBSVTOIN 11:56 → C.5E 12:49
PROVIDERS: ADMIT Emergency Medicine; ATTEND Psychiatry & Neurology Psychiatry
PROC: GZ3ZZZZ Medication Management (ICD-10-PCS; principal; 2016-10-18)
PROC: HZ2ZZZZ Detoxification Services for Substance Abuse Treatment (ICD-10-PCS; 2016-10-18)
PROC: HZ59ZZZ Individual Psychotherapy for Substance Abuse Treatment, Supportive (ICD-10-PCS; 2016-10-18)
PROC: HZ83ZZZ Medication Management for Substance Abuse Treatment, Antabuse (ICD-10-PCS; 2016-10-18)
PROC: HZ2ZZZZ Detoxification Services for Substance Abuse Treatment (ICD-10-PCS; 2016-10-18)
PROC: GZHZZZZ Group Psychotherapy (ICD-10-PCS; 2016-10-18)
PROC: GZ56ZZZ Individual Psychotherapy, Supportive (ICD-10-PCS; 2016-10-18)
DX: F25.0 Schizoaffective disorder, bipolar type (principal); F11.20 Opioid dependence, uncomplicated; R45.851 Suicidal ideations; F10.230 Alcohol dependence with withdrawal, uncomplicated; F12.90 Cannabis use, unspecified, uncomplicated; F14.90 Cocaine use, unspecified, uncomplicated; F90.9 Attention-deficit hyperactivity disorder, unspecified type; G24.01 Drug induced subacute dyskinesia; R45.850 Homicidal ideations; Z79.899 Other long term (current) drug therapy; Z91.5 Personal history of self-harm

== ENCOUNTER 2017-04-17 17:14 | Emergency (ER) | payer OTHER ==
[2017-04-17 19:01] VITALS: RESP 20; O2SAT 97
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
[2017-04-17 20:31] LABS: BASO # 0.1 K/uL (0.0-0.2); BASO % 0.5 % (0.0-2.0); EOS # 0.1 K/uL (0.0-0.7); EOS % 0.4 % (0.0-4.0); HEMOGLOBIN 13.8 g/dL (12.0-18.0); LYMPH # 3.1 K/uL (1.0-4.3); MEAN CELL VOLUME 91.3 fL (80.0-94.0); MONO # 1.1 K/uL (0.0-0.8); MONO % 5.8 % (0.0-10.0); NEUT # 13.8 K/uL (1.8-7.0); NEUT % 76.3 % (50.0-75.0); RBC 4.44 Mil/uL (4.40-5.90); RED CELL DISTRIBUTION WIDTH 14.1 % (11.5-14.5); WHITE BLOOD COUNT 18.1 K/uL (4.8-10.8)
[2017-04-17 20:48] LABS: ALB/GLOB RATIO 1.4 (1.0-2.1); ALBUMIN 4.6 g/dL (3.5-5.0); ALT/SGPT 51 U/L (21-72); AST/SGOT 106 U/L (17-59); BLOOD UREA NITROGEN 25 mg/dL (9-20); CALCIUM 8.4 mg/dl (8.6-10.4); GFR AFRICAN-AMERICAN > 60; GFR NON-AFRICAN AMERICAN > 60
[2017-04-17] MEDS ORDERED: Sodium Chloride 0.9% 1,000 ML IV ONE (22:10)
[2017-04-17 22:15] LABS: SQUAMOUS EPITHIAL < 1 /hpf (0-5); URINE BILIRUBIN NEGATIVE (NEGATIVE); URINE BLOOD NEGATIVE (NEGATIVE); URINE CLARITY Hazy (Clear); URINE COLOR Amber (YELLOW); URINE GLUCOSE (UA) 1+ mg/dL (Normal); URINE LEUKOCYTE ESTERASE NEG Leu/uL (Negative); URINE NITRATE NEGATIVE (NEGATIVE); URINE PROTEIN 2+ mg/dL (NEGATIVE)
[2017-04-17] MEDS ORDERED: Sodium Chloride 0.9% 1,000 ML ONE (22:20)
[2017-04-17 22:26] LABS: BARBITURATES, UR NEGATIVE (NEGATIVE); BENZODIAZEPINES, UR NEGATIVE (NEGATIVE); PHENCYCLIDINE, UR NEGATIVE (NEGATIVE)
[2017-04-17 22:28] LABS: OPIATES, UR POSITIVE (NEGATIVE)
[2017-04-17] MEDS ORDERED: Ciprofloxacin 400mg/200ml D5W 400 MG/200 ML BAG IVPB STA (22:47)
[2017-04-18 00:24] VITALS: BP 155/70; PULSE 88; TEMP 98.4
--- NOTE | 2017-04-18 09:02 | RAD ---
Chest x-ray two views History: Leukocytosis. Comparison: None available. Findings: No focal infiltrate or effusion. Heart size within normal limits. Question mild diastases of the right acromioclavicular interval measuring up to 1 centimeters. This may be related to patient positioning and/or technique. Clinical correlation. Impression: No focal infiltrate or effusion.
--- NOTE | 2017-04-18 21:02 | CARD ---
APPROVED REPORT EKG Measurement Heart [id number] <Conclusion> Normal sinus rhythm Right atrial enlargement Voltage criteria for left ventricular hypertrophy Nonspecific T wave abnormality Abnormal ECG
== END 2017-04-18 00:36 | disposition home or self-care (01) ==
LOC: C.ER 17:14
DX: N39.0 Urinary tract infection, site not specified (principal); F10.19 Alcohol abuse with unspecified alcohol-induced disorder; F19.10 Other psychoactive substance abuse, uncomplicated
CPT/HCPCS: 36415; 71046; 80053; 81001; 85025; 93005; 99285; G0480; J7040

== ENCOUNTER 2017-07-29 16:52 | Emergency (ER) | payer MEDICARE, OTHER ==
[2017-07-29 17:12] VITALS: BP 132/77; PULSE 103; RESP 18; TEMP 98.6; O2SAT 95
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
== END 2017-07-29 17:50 | disposition home or self-care (01) ==
LOC: C.ER 16:52
DX: F32.9 Major depressive disorder, single episode, unspecified (principal); Z59.0 Homelessness

== ENCOUNTER 2018-01-17 22:40 | Emergency (ER) | payer MEDICARE, OTHER ==
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
[2018-01-17] MEDS ORDERED: Multivitamin (MVI) 10 ML, Thiamine 100 MG, Folic Acid 1 MG in Sodium Chloride 0.9% 1,00... IV ONE (23:22)
[2018-01-17 23:34] LABS: BASO # 0.1 K/uL (0.0-0.2); BASO % 0.7 % (0.0-2.0); EOS # 0.3 K/uL (0.0-0.7); EOS % 2.4 % (0.0-4.0); HEMOGLOBIN 12.8 g/dL (12.0-18.0); LYMPH # 2.4 K/uL (1.0-4.3); LYMPH % 21.7 % (20.0-40.0); MEAN CELL VOLUME 91.3 fL (80.0-94.0); MEAN CORPUSCULAR HEMOGLOBIN 31.6 pg (27.0-31.0); MEAN CORPUSCULAR HGB CONC 34.6 g/dL (33.0-37.0); MEAN PLATELET VOLUME 7.4 fL (7.2-11.7); MONO # 0.7 K/uL (0.0-0.8); MONO % 6.8 % (0.0-10.0); NEUT # 7.4 K/uL (1.8-7.0); NEUT % 68.4 % (50.0-75.0); NRBC % 0.1 % (0.0-2.0); RBC 4.06 Mil/uL (4.40-5.90); WHITE BLOOD COUNT 10.9 K/uL (4.8-10.8)
[2018-01-17 23:45] LABS: ALB/GLOB RATIO 1.5 (1.0-2.1); ALBUMIN 4.9 g/dL (3.5-5.0); ALT/SGPT 38 U/L (21-72); AST/SGOT 49 U/L (17-59); BLOOD UREA NITROGEN 24 mg/dL (9-20); CALCIUM 9.7 mg/dl (8.6-10.4); GFR NON-AFRICAN AMERICAN 52
[2018-01-18 00:05] LABS: ACETAMINOPHEN < 10.0 ug/mL (10.0-30.0); SALICYLATE < 1.0 mg/dL 1
[2018-01-18 02:03] VITALS: O2SAT 100
[2018-01-18 04:05] VITALS: BP 130/82; PULSE 76; RESP 16; TEMP 98.8
--- NOTE | 2018-01-18 09:10 | CT ---
Date of service: 01/18/2018 PROCEDURE: CT HEAD WITHOUT CONTRAST. HISTORY: etoh intox COMPARISON: Comparison made with CT brain 04/26/2016 TECHNIQUE: Axial computed tomography images were obtained through the head/brain without intravenous contrast. Radiation dose: Total exam DLP = 938.99 mGy-cm. This CT exam was performed using one or more of the following dose reduction techniques: Automated exposure control, adjustment of the mA and/or kV according to patient size, and/or use of iterative reconstruction technique. FINDINGS: HEMORRHAGE: No intracranial hemorrhage. BRAIN: No mass effect or edema. No atrophy or chronic microvascular ischemic changes. VENTRICLES: No obstructive hydrocephalus. CALVARIUM: No acute calvarial fractures. PARANASAL SINUSES: Mild mucosal thickening present in the left maxillary antrum and ethmoid air complex MASTOID AIR CELLS: Unremarkable as visualized. No inflammatory changes. OTHER FINDINGS: None. IMPRESSION: No acute intracranial hemorrhage.
--- NOTE | 2018-01-18 10:05 | CT ---
Date of service: 01/18/2018 PROCEDURE: CT Cervical Spine without contrast HISTORY: ETOH intoxication. COMPARISON: None available. TECHNIQUE: Axial computed tomography images were obtained of the cervical spine without the use of intravenous contrast. Coronal and sagittal reformatted images were created and reviewed. Radiation dose: Total exam DLP = 640.76 mGy-cm. This CT exam was performed using one or more of the following dose reduction techniques: Automated exposure control, adjustment of the mA and/or kV according to patient size, and/or use of iterative reconstruction technique. FINDINGS: Note that this examination is limited by motion artifact of which results in obscuration of fine soft tissue and bone detail from the C3-C4 through the upper thoracic region. VERTEBRAE: No evidence of acute compression fractures nor retropulsed fragments. Vertebral bodies exhibit normal stature. Some very slight reversal of the normal upper cervical lordosis however vertebral bodies otherwise exhibit normal alignment within limitation of the exam. Facets also exhibit normal alignment. DISCS/SPINAL CANAL/NEURAL FORAMINA: Disc space heights are maintained. Multilevel small marginal anterior osteophytes are present.. Overall central bony canal and exit foramina appear adequate. PARASPINAL SOFT TISSUES: Unremarkable. OTHER FINDINGS: No note made of a tiny blebs mild both lung apices. IMPRESSION: Limited motion degraded study. No acute fractures..
== END 2018-01-18 04:07 | disposition home or self-care (01) ==
LOC: C.ER 22:40
DX: F19.10 Other psychoactive substance abuse, uncomplicated (principal)
CPT/HCPCS: 70450; 72125; 80053; 82948; 83735; 84100; 85025; 96374; 99285; G0480; J3411; J7030

== ENCOUNTER 2018-01-20 08:41 | Emergency (ER) | payer MEDICARE, OTHER ==
[2018-01-20 08:45] VITALS: TEMP 97.6
[2018-01-20 08:46] VITALS: BMI 23.7
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
[2018-01-20 09:44] LABS: BASO # 0.1 K/uL (0.0-0.2); BASO % 0.4 % (0.0-2.0); EOS # 0.1 K/uL (0.0-0.7); HEMOGLOBIN 11.9 g/dL (12.0-18.0); LYMPH # 1.4 K/uL (1.0-4.3); LYMPH % 11.6 % (20.0-40.0); MEAN CELL VOLUME 91.1 fL (80.0-94.0); MEAN CORPUSCULAR HEMOGLOBIN 30.5 pg (27.0-31.0); MEAN CORPUSCULAR HGB CONC 33.5 g/dL (33.0-37.0); MEAN PLATELET VOLUME 6.9 fL (7.2-11.7); MONO # 0.5 K/uL (0.0-0.8); MONO % 4.5 % (0.0-10.0); NEUT # 10.1 K/uL (1.8-7.0); NEUT % 82.5 % (50.0-75.0); RBC 3.91 Mil/uL (4.40-5.90); RED CELL DISTRIBUTION WIDTH 14.1 % (11.5-14.5); WHITE BLOOD COUNT 12.2 K/uL (4.8-10.8)
[2018-01-20 10:19] LABS: ALB/GLOB RATIO 1.6 (1.0-2.1); ALBUMIN 4.5 g/dL (3.5-5.0); ALT/SGPT 46 U/L (21-72); AST/SGOT 63 U/L (17-59); BLOOD UREA NITROGEN 19 mg/dL (9-20); CALCIUM 9.1 mg/dl (8.6-10.4); GFR NON-AFRICAN AMERICAN > 60
--- NOTE | 2018-01-20 10:39 | RAD ---
HISTORY: pysch COMPARISON: Chest x-ray performed 04/17/17 TECHNIQUE: Chest, one view. FINDINGS: Examination limited by habitus. The patient's chin obscures evaluation of the lung apices, in particular the right lung apex. LUNGS: No focal consolidation. Please note that chest x-ray has limited sensitivity for the detection of pulmonary masses. PLEURA: No significant pleural effusion identified. No definite pneumothorax . CARDIOVASCULAR: Heart size appears within normal limits. No significant atherosclerotic calcification present. OSSEOUS STRUCTURES: No acute osseous abnormality identified. VISUALIZED UPPER ABDOMEN: Unremarkable. OTHER FINDINGS: None. IMPRESSION: No focal consolidation.
[2018-01-20 10:45] VITALS: RESP 14
[2018-01-20 11:51] VITALS: BP 162/108; PULSE 82
[2018-01-20 13:40] VITALS: O2SAT 100
== END 2018-01-20 13:41 | disposition home or self-care (01) ==
LOC: C.ER 08:41
DX: F19.10 Other psychoactive substance abuse, uncomplicated (principal); F20.9 Schizophrenia, unspecified; F41.9 Anxiety disorder, unspecified; F31.9 Bipolar disorder, unspecified
CPT/HCPCS: 71045; 80053; 82550; 82948; 83735; 84100; 85025; 99285; G0480

== ENCOUNTER 2018-01-20 14:40 | Emergency (ER) | payer MEDICARE, OTHER ==
[2018-01-20 14:40] VITALS: BMI 23.7
[2018-01-20 14:50] VITALS: BP 160/77; PULSE 84; RESP 18; TEMP 98.6; O2SAT 98
--- NOTE | 2018-01-20 15:00 | C.PDOC ---
History Of Present Illness 37 year old male, with longstanding history of substance abuse and homelessness, is brought to the ED by ambulance for evaluation. Patient was seen in the ED earlier today for evaluation of substance abuse and was discharged. Following discharge, a concerned citizen saw patient on the street and asked for him to be brought into a jail. Instead, patient was brought to the ED for further evaluation. Patient has no new medical complaints at this time. Time Seen by Provider: 01/20/18 14:45 Chief Complaint (Nursing): Medical Clearance History Per: Patient, EMS History/Exam Limitations: no limitations Onset/Duration Of Symptoms: Mins Current Symptoms Are (Timing): Still Present Additional History Per: Patient Past Medical History Reviewed: Historical Data, Nursing Documentation, Vital Signs Vital Signs: Last Vital Signs Temp 98.6 F 01/20/18 14:42 Pulse 84 01/20/18 14:42 Resp 18 01/20/18 14:42 BP 160/77 H 01/20/18 14:42 Pulse Ox 98 01/20/18 14:42 - Medical History PMH: Anxiety, Bipolar Disorder, Bronchitis, Depression, Schizophrenia, Seizures (ETOH related) Denies: Diabetes, Hepatitis, HIV, HTN, Chronic Kidney Disease, Sexually Transmitted Disease Surgical History: Appendectomy Denies: Pacemaker - [facility] Procedures ALCOHOL DETOXIFICATION (11/11/14) COMBINED ALCOHOL AND DRUG DETOXIFICATION (08/18/14) DETOXIFICATION SERVICES FOR SUBSTANCE ABUSE TREATMENT (10/18/16) DRUG DETOXIFICATION (09/29/14) GROUP PSYCHOTHERAPY (06/15/17) INDIV PSYCHOTHERAPY FOR SUBSTANCE ABUSE TREATMENT, SUPPORT (10/18/16) INDIV PSYCHOTHERAPY FOR SUBSTANCE ABUSE, COGNITIV BEHAVIORAL (06/15/17) INDIV PSYCHOTHERAPY FOR SUBSTANCE ABUSE, MOTIVATION ENHANCE (06/15/17) INDIVID PSYCHOTHERAP NEC (10/21/14) INDIVIDUAL PSYCHOTHERAPY, SUPPORTIVE (10/18/16) MEDICATION MANAGEMENT (11/10/16) MEDS MGMT FOR SUBSTANCE ABUSE TREATMENT, ANTABUSE (10/18/16) NEBULIZER THERAPY (06/23/02) OTHER GROUP THERAPY (10/21/14) Family History: States: Unknown Family Hx - Social History Hx Tobacco Use: No Hx Alcohol Use: Yes (drinks 1/2 gallon vodka daily) Hx Substance Use: Yes - Immunization History Hx Tetanus Toxoid Vaccination: No Hx Influenza Vaccination: Yes Hx Pneumococcal Vaccination: No Review Of Systems Psych: Positive for: Other (medical clearance ) Physical Exam - Physical Exam Appears: Well, Non-toxic, No Acute Distress, Other (easily arousable ) Skin: Normal Color, Warm, Dry Head: Atraumatic, Normacephalic Eye(s): bilateral: Normal Inspection Oral Mucosa: Moist Extremity: Normal ROM Neurological/Psych: Oriented x3, Normal Speech, Normal Cognition ED Course And Treatment O2 Sat by Pulse Oximetry: 98 (on RA ) Pulse Ox Interpretation: Normal Medical Decision Making Medical Decision Making: Progress: Patient was observed in the ED for over one hour. He is currently clinically sober and able to ambulate out of the ED. Disposition - Disposition Disposition: HOME/ ROUTINE Disposition Time: 14:57 Condition: STABLE Forms: [employer] (Lao) - Clinical Impression Clinical Impression: Medical assessment, Homelessness - Scribe Statement The provider has reviewed the documentation as recorded by the Scribe (Sri Bates) Provider Attestation: All medical record entries made by the Scribe were at my direction and personally dictated by me. I have reviewed the chart and agree that the record accurately reflects my personal performance of the history, physical exam, medical decision making, and the department course for this patient. I have also personally directed, reviewed, and agree with the discharge instructions and disposition.
== END 2018-01-20 15:51 | disposition home or self-care (01) ==
LOC: C.ER 14:40
DX: Z04.89 Encounter for examination and observation for other specified reasons (principal); Z59.0 Homelessness

== ENCOUNTER 2018-03-20 21:51 | Emergency (ER) | payer MEDICARE, OTHER ==
[2018-03-20 21:52] VITALS: BMI 23.7
--- NOTE | 2018-03-20 22:09 | C.PDOC ---
History Of Present Illness 37 year old male is brought to the ED by EMS and Police for public intoxication. Patient was at home when he has a verbal confrontation there. Patient claims someone was doing a lot of heroin in his house. Patient denies using heroin but admits to drinking alcohol. Upon arrival patient was confrontational, argumentative, foul mouth and verbally threatening the staff. Time Seen by Provider: 03/20/18 22:07 Chief Complaint (Nursing): Substance Abuse History Per: Patient, EMS History/Exam Limitations: intoxication Onset/Duration Of Symptoms: Hrs Current Symptoms Are (Timing): Still Present Suicide/Self Injury Attempted (Context): None Modifying Factor(s): Alcohol Associated Symptoms: Anger. denies: Depression, Suicidal Thoughts, Suicidal Plan Involuntary Hold By: Local Law Enforcement Recent travel outside of the [place]: No Additional History Per: Patient, EMS Past Medical History Reviewed: Historical Data, Nursing Documentation, Vital Signs - Medical History PMH: Anxiety, Bipolar Disorder, Bronchitis, Depression, Schizophrenia, Seizures (ETOH related) Denies: Diabetes, Hepatitis, HIV, HTN, Chronic Kidney Disease, Sexually Transmitted Disease Surgical History: Appendectomy Denies: Pacemaker - [facility] Procedures ALCOHOL DETOXIFICATION (11/11/14) COMBINED ALCOHOL AND DRUG DETOXIFICATION (08/18/14) DETOXIFICATION SERVICES FOR SUBSTANCE ABUSE TREATMENT (10/18/16) DRUG DETOXIFICATION (09/29/14) GROUP PSYCHOTHERAPY (01/21/18) INDIV PSYCHOTHERAPY FOR SUBSTANCE ABUSE TREATMENT, SUPPORT (10/18/16) INDIV PSYCHOTHERAPY FOR SUBSTANCE ABUSE, COGNITIV BEHAVIORAL (01/21/18) INDIV PSYCHOTHERAPY FOR SUBSTANCE ABUSE, MOTIVATION ENHANCE (06/15/17) INDIVID PSYCHOTHERAP NEC (10/21/14) INDIVIDUAL PSYCHOTHERAPY, COGNITIVE-BEHAVIORAL (01/21/18) INDIVIDUAL PSYCHOTHERAPY, SUPPORTIVE (10/18/16) MEDICATION MANAGEMENT (11/10/16) MEDS MGMT FOR SUBSTANCE ABUSE TREATMENT, ANTABUSE (10/18/16) NEBULIZER THERAPY (06/23/02) OTHER GROUP THERAPY (10/21/14) Family History: States: Unknown Family Hx - Social History Hx Tobacco Use: No Hx Alcohol Use: Yes Hx Substance Use: Yes - Immunization History Hx Tetanus Toxoid Vaccination: No Hx Influenza Vaccination: Yes Hx Pneumococcal Vaccination: No Review Of Systems Constitutional: Negative for: Fever, Chills Cardiovascular: Negative for: Chest Pain, Palpitations Respiratory: Negative for: Shortness of Breath Gastrointestinal: Negative for: Nausea, Vomiting, Abdominal Pain Skin: Negative for: Rash Psych: Negative for: Depression, Suicidal ideation Physical Exam - Physical Exam Appears: Non-toxic, Combative, Agitated, Other (AOB) Skin: Normal Color, Warm, Dry Head: Atraumatic, Normacephalic Eye(s): bilateral: Normal Inspection Neck: Normal ROM, Supple Chest: Symmetrical Cardiovascular: Rhythm Regular Respiratory: Normal Breath Sounds, No Rales, No Rhonchi, No Wheezing Gastrointestinal/Abdominal: Soft, No Tenderness, No Guarding, No Rebound Extremity: Normal ROM, No Tenderness, No Swelling Neurological/Psych: Oriented x3, Normal Speech, Normal Cognition Gait: Steady ED Course And Treatment O2 Sat by Pulse Oximetry: 96 (ON RA) Pulse Ox Interpretation: Normal Medical Decision Making Medical Decision Making: alcohol abuse refuses to stay in ED stable gait Disposition Doctor Will See Patient In The: Office Counseled Patient/Family Regarding: Studies Performed, Diagnosis - Disposition Referrals: Alcoholics Anonymous [Outside] [facility] [place] [Outside] [place] [facility] [Outside] [facility] [Outside] [facility] [Outside] Disposition: HOME/ ROUTINE Disposition Time: 22:08 Condition: GOOD Additional Instructions: seek assistance for your alcohol abuse Instructions: Alcohol Abuse and Alcoholism (DC) Forms: [employer] (Yi) - Clinical Impression Clinical Impression: Alcohol abuse - Scribe Statement The provider has reviewed the documentation as recorded by the Scribe King Rosas All medical record entries made by the Scribe were at my direction and personally dictated by me. I have reviewed the chart and agree that the record accurately reflects my personal performance of the history, physical exam, medical decision making, and the department course for this patient. I have also personally directed, reviewed, and agree with the discharge instructions and disposition.
[2018-03-20 22:11] VITALS: BP 127/87; PULSE 81; TEMP 98.6; O2SAT 96
[2018-03-20 22:19] VITALS: RESP 18
== END 2018-03-20 22:18 | disposition home or self-care (01) ==
LOC: C.ER 21:51
DX: F10.10 Alcohol abuse, uncomplicated (principal); Y90.9 Presence of alcohol in blood, level not specified